=== PATIENT | male | born 1950 | race Caucasian/White ===

== ENCOUNTER 2019-09-30 15:23 | Emergency (ER) | payer MEDICARE ==
--- NOTE | 2019-09-30 15:53 | RAD ---
EXAM: CHEST ONE VIEW: 09/30/19 HISTORY: Shortness of breath for one month, worse laying down flat. COMPARISON: 08/28/16. FINDINGS: Interval development of right paratracheal adenopathy, left AP window adenopathy, and subcarinal antwan opathy as well as left hilar adenopathy/left perihilar lung mass measuring 5.3 cm in size. Blunting o f the left costophrenic angle suggesting some pleural effusion. 1.8 cm diameter nodule in the left lo wer lobe region. IMPRESSION: Fairly extensive mediastinal and hilar adenopathy as above. 5.3 cm diameter either a left hilar mass or pulmonary parenchymal mass. 1.8 cm diameter left lower lobe lateral pulmonary nodule. Left costoph renic angle blunting, evidence for some effusion. Code LN Follow-up CT scan on a nonemergent basis would be of benefit. POS: [facility]
[2019-09-30 16:33] LABS: #Basophils 0.1 thou/uL (0.0-0.2); #Eosinphils 0.2 thou/uL (0.0-0.7); #Neutrophils 5.8 thou/uL (1.40-6.50); %Eosinophils 1.7 % (0.0-10.0); %Lymphocytes 21.9 % (21.0-51.0); %Monocytes 10.8 % (0.0-10.0); %Neutrophils 64.7 % (42.0-75.0); Hemoglobin 14.5 g/dL (14.0-18.0); Mean Corpuscular HGB CONC 33.8 g/dL (32.0-36.0); Mean Corpuscular Hemoglobin 31.6 pg (27.0-31.0); Mean Corpuscular Volume 93.3 fL (78.0-98.0); Mean Platelet Volume 6.5 fL (7.4-10.4); Platelet Count 396 thou/uL (130-400)
[2019-09-30 16:54] LABS: ALT (SGPT) 14 U/L (8-55); AST (SGOT) 15 U/L (5-34); Albumin 4.7 g/dL (3.4-4.8); Alkaline Phosphatase 64 U/L (40-110); Anion Gap 14 mmol/L (10-20); BUN (Urea Nitrogen) 14 mg/dL (8.4-25.7); Bilirubin, Total 0.3 mg/dL (0.2-1.2); Calc. Creatinine Clearance 0 mL/min (70-130); Calcium 9.8 mg/dL (7.8-10.44); Carbon Dioxide 24 mmol/L (23-31); Chloride 100 mmol/L (98-107); Estimated GFR-MDRD 69; Globulin 2.5 g/dL (2.4-3.5); Glucose 101 mg/dL (80-115); Protein, Total 7.2 g/dL (5.8-8.1); Sodium 134 mmol/L (136-145)
--- NOTE | 2019-09-30 17:35 | CT ---
CT CHEST WITH CONTRAST: 09/30/19 COMPARISON: Chest x-ray 09/30/19. HISTORY: New mass on chest x-ray. Cough and shortness of breath has gotten worse on the last month when lying down flat at night. TECHNIQUE: Multiple contiguous axial images were obtained in a CT of the chest with contrast. Sagittal and coron al reformats were performed. FINDINGS: There is a left hilar mass measuring 4.1 cm in size. Extensive mediastinal lymphadenopathy is seen. The lymph nodes are confluent and measure up to 8.4 cm in confluent diameter. There appears to be sli ght narrowing of the bronchi to the left lung. There is also narrowing of the right and left main pul monary arteries secondary to the adenopathy. There is atelectasis in the lingula. A small left pleur al effusion is present. No other pulmonary masses are seen. No pneumothorax is seen. The visualized subdiaphragmatic structures are unremarkable. The chest wall soft tissues are unremark able. No suspicious osseous lesions are identified. IMPRESSION: Left hilar mass with extensive mediastinal adenopathy. A primary lung malignancy is of utmost concern . This mass and lymphadenopathy is central an bronchoscopy would be the best method for tissue sampli ng. POS: [facility]
--- NOTE | 2019-10-01 15:19 | EKG ---
Test Reason : Blood Pressure : / mmHG Vent. Rate : 097 BPM Atrial Rate : 097 BPM P-R Int : 156 ms QRS Dur : 144 ms QT Int : 384 ms P-R-T Axes : 071 030 017 degrees QTc Int : 487 ms Normal sinus rhythm Possible Left atrial enlargement Right bundle branch block Abnormal ECG Confirmed by MOY SCHAFFER ([id number]), editorial assistant JO SAAVEDRA ([id number]) on 10/01/2019 3:18:58 PM Referred By: Confirmed By:MOY Caldwell
== END 2019-09-30 19:36 | disposition home or self-care (01) ==
LOC: ERS 15:23
DX: R91.8 Other nonspecific abnormal finding of lung field (principal); E78.5 Hyperlipidemia, unspecified; E78.00 Pure hypercholesterolemia, unspecified; I10 Essential (primary) hypertension; F17.210 Nicotine dependence, cigarettes, uncomplicated; Z79.899 Other long term (current) drug therapy
CPT/HCPCS: 71045; 71260; 80053; 83880; 84484; 85025; 93005

== ENCOUNTER 2019-10-05 06:58 | Day surgery (SDC) | payer MEDICARE ==
[2019-10-04 09:18] VITALS: BMI 25.0
[2019-10-05] MEDS ORDERED: Midazolam HCl 2 mg/2 ml Vial ONE ×2 (08:15→08:38)
[2019-10-05] MEDS ORDERED: Fentanyl 100 MCG/2 ML VIAL ONE ×2 (08:38→09:51)
[2019-10-05] MEDS ORDERED: Succinylcholine Chloride 20 MG/ML 10 ml SYRINGE FS ONE (09:54)
[2019-10-05] MEDS ORDERED: Lidocaine 1% PF 5 ML VIAL ONE (09:54)
[2019-10-05] MEDS ORDERED: PHENYLEPHRINE-NS 100 MCG/ML 10 ML SYRINGE ONE (09:54)
[2019-10-05] MEDS ORDERED: Ondansetron PF 4 MG/2 ML Vial ONE (09:54)
[2019-10-05] MEDS ORDERED: PROPOFOL 200 MG/20 ML VIAL ONE (09:54)
[2019-10-05] MEDS ORDERED: Dexamethasone 20 MG/5 ML VIAL ONE (09:54)
--- NOTE | 2019-10-05 10:43 | OP ---
DATE OF PROCEDURE: 10/05/2019 PROCEDURE PERFORMED: Bronchoscopy. PREOPERATIVE DIAGNOSIS: Lung mass. POSTOPERATIVE DIAGNOSIS: Lung mass. ANESTHESIA: General endotracheal. DESCRIPTION OF PROCEDURE: Informed consent was obtained prior to the procedure, explaining the risks including bleeding, infection, pneumothorax, and reaction to anesthesia. The patient agreed to proceed. The patient was brought to the endoscopy suite and intubated with an 8.0 endotracheal tube by Anesthesia staff while on general anesthesia. Time-out was taken prior to procedure. Olympus 2.4 bronchoscope was placed through an adapter into the patient's endotracheal tube into his trachea. The trachea was normal in appearance throughout mainstem bronchus. Right upper lobe, right middle lobe, and right lower lobe were normal in appearance. On the ventral aspect of the left mainstem bronchus, there was endobronchial tumor occluding about 20% of the airway from that side. At the junction of the apical posterior segment and the lingula in the left upper lobe, it was noted that the lingula was 100% occluded by endobronchial tumor. There was also occlusion at lateral aspect of the apical posterior segment about 70% by tumor. The left lower lobe was free of disease. Biopsies were taken of the mass in the left lingula and left mainstem bronchus. Brushes were taken from these regions. Washings were also obtained. The patient tolerated the procedure well, was extubated, sent to recovery area. Job ID: [id number]
--- NOTE | 2019-10-06 12:46 | EKG ---
Test Reason : PREOP Blood Pressure : / mmHG Vent. Rate : 103 BPM Atrial Rate : 103 BPM P-R Int : 150 ms QRS Dur : 148 ms QT Int : 386 ms P-R-T Axes : 072 265 033 degrees QTc Int : 505 ms Sinus tachycardia Possible Left atrial enlargement Right bundle branch block Cannot rule out Inferior infarct , age undetermined Abnormal ECG When compared with ECG of 30-SEP-2019 15:33, QRS axis Shifted left Confirmed by DR. Felicita GIORDANO ([id number]) on 10/06/2019 12:46:03 PM Referred By: [facility] Confirmed By:DR. Felicita GIORDANO
== END 2019-10-05 11:10 | disposition home or self-care (01) ==
LOC: SDC 06:58
PROVIDERS: ATTEND Internal Medicine Critical Care Medicine
PROC: 0BD78ZX Extraction of Left Main Bronchus, Via Natural or Artificial Opening Endoscopic, Diagnostic (ICD-10-PCS; principal; 2019-10-05)
PROC: 0BDG8ZX Extraction of Left Upper Lung Lobe, Via Natural or Artificial Opening Endoscopic, Diagnostic (ICD-10-PCS; 2019-10-05)
DX: C34.12 Malignant neoplasm of upper lobe, left bronchus or lung (principal); C34.02 Malignant neoplasm of left main bronchus; I10 Essential (primary) hypertension; E78.5 Hyperlipidemia, unspecified; Z87.891 Personal history of nicotine dependence; Z79.899 Other long term (current) drug therapy
CPT/HCPCS: 88112; 88305; 88341; 88342; 88360; 93005; 93010; J1100; J2001; J2250; J2405; J2704; J3010

== ENCOUNTER 2019-10-14 07:27 | Outpatient (CLI) | payer MEDICARE ==
--- NOTE | 2019-10-14 11:43 | CT ---
CT BRAIN WITHOUT CONTRAST: Date: 10/14/2019 HISTORY: Lung cancer. Exam requested to evaluate for metastatic disease. COMPARISON: 10/25/2004. FINDINGS: No evidence of infarct, hemorrhage, mass, midline shift, or abnormal extra-axial fluid collections ar e seen. The ventricular size is appropriate and the basilar cisterns are patent. No abnormal postcont rast enhancement is seen. The bony calvarium is intact. The visualized paranasal sinuses and mastoid air cells are well aerated. IMPRESSION: No evidence of metastatic disease. Normal exam. POS: [facility]
--- NOTE | 2019-10-14 13:08 | PET ---
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 Initial staging. FINDINGS: Physiologic uptake of radiotracer throughout the enteric system and along each urinary trac t. Markedly increased uptake involves the left hilar mass/adenopathy, max SUV 5.6. Hypermetabolic activity is also associated with the bulky adenopathy throughout the mediastinum, with maximum SUVs up to 6.1 at the right hilum, 6.3 precarinal, and 6.3 subcarinal. Asymmetric uptake is noted at the larynx without mass evident on the CT images. Uptake is greater on the right than the left, max SUV 4.9. Left vocal cord is displaced medially slightly. Findings likely result from paralysis of the left vocal cord due to from damage to be recurrent laryngeal nerv e. No other areas of abnormal radiotracer uptake evident. Left pleural fluid has increased, as has prominent ill-defined infiltrate within the dependent portio ns of the left upper and lower lobes. Small amount of pericardial fluid is again demonstrated. Prominent calcification throughout the arterial structures including the coronary arteries. Small hia amrita hernia. IMPRESSION : Pathologic activity limited to the left hilar mass and bilateral mediastinal adenopathy. 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 Prominent atherosclerosis. Enlarging left pleural effusion and dependent infiltrate in the left upper and lower lobes. Possibly due to aspiration. Small hiatal hernia.
== END 2019-10-14 07:28 | disposition home or self-care (01) ==
LOC: PET 07:27 → CT 07:28
PROVIDERS: ATTEND Internal Medicine Hematology & Oncology
DX: C34.12 Malignant neoplasm of upper lobe, left bronchus or lung (principal); K44.9 Diaphragmatic hernia without obstruction or gangrene; R91.8 Other nonspecific abnormal finding of lung field; J38.01 Paralysis of vocal cords and larynx, unilateral; I25.10 Atherosclerotic heart disease of native coronary artery without angina pectoris; R94.8 Abnormal results of function studies of other organs and systems
CPT/HCPCS: 70470; 78815; A9552

== ENCOUNTER 2019-12-02 11:05 | Observation (INO) | payer MEDICARE ==
[2019-12-02 11:44] LABS: #Lymphocytes 0.6 thou/uL (1.20-3.40); #Monocytes 0.1 thou/uL (0.11-0.59); #Neutrophils 0.8 thou/uL (1.40-6.50); %Basophils 0.5 % (0.0-1.0); %Eosinophils 0.5 % (0.0-10.0); %Lymphocytes 41.4 % (21.0-51.0); %Monocytes 3.5 % (0.0-10.0); Hemoglobin 6.7 g/dL (14.0-18.0); Mean Corpuscular HGB CONC 34.6 g/dL (32.0-36.0); Mean Corpuscular Hemoglobin 32.2 pg (27.0-31.0); Mean Corpuscular Volume 92.9 fL (78.0-98.0); Mean Platelet Volume 6.3 fL (7.4-10.4); Platelet Count 180 thou/uL (130-400); Red Blood Cell (RBC) Count 2.08 mill/uL (4.70-6.10); White Blood Cell (WBC) Count 1.6 thou/uL (4.8-10.8)
--- NOTE | 2019-12-02 11:47 | RAD ---
EXAM: Single view of the chest HISTORY: Anemia COMPARISON: 09/30/2019 FINDINGS: Single view of the chest shows a normal sized cardiomediastinal silhouette. There is a smal l left pleural effusion with adjacent atelectasis. The bones are unremarkable. IMPRESSION: Small left pleural effusion
[2019-12-02 11:50] LABS: INR-International Normal Ratio 1.1; PTT 29.6 sec (22.9-36.1)
--- NOTE | 2019-12-02 11:52 | CT ---
EXAM: CT brain without contrast HISTORY: Syncope COMPARISON: 10/25/2004 TECHNIQUE: Multiple contiguous axial images were obtained and a CT of the brain without contrast. FINDINGS: The brain is normal in morphology and attenuation without focal lesions or confluent areas of infarction. There is no evidence of hydrocephalus, intracranial hemorrhage, or extra-axial fluid collection. The calvarium and overlying soft tissues are unremarkable. The visualized paranasal sinuses and masto id air cells are well aerated. IMPRESSION: No evidence of acute intracranial abnormality
--- NOTE | 2019-12-02 11:54 | CT ---
EXAM: CT of the cervical spine without contrast HISTORY: Syncope with fall and neck pain COMPARISON: None TECHNIQUE: Multiple contiguous axial images were obtained in a CT of the cervical spine without contr ast. Sagittal and coronal reformats were performed. FINDINGS: The vertebral bodies demonstrate normal height and alignment without fracture or subluxatio n. Moderate degenerative changes are present in the mid cervical spine. No prevertebral soft tissue swelling is seen. The posterior facets are well aligned. Normal alignment of the skull base with the cervical spine is seen. The lung apices and cervical soft tissues are unremarkable. IMPRESSION: No evidence of acute osseous abnormality of the cervical spine.
--- NOTE | 2019-12-02 12:07 | CT ---
CT ANGIOGRAM THORAX WITH CONTRAST: (CTA pulmonary angiogram) DATE: 12/02/2019 HISTORY: 69-year-old male with dyspnea. History of left lung small cell cancer. COMPARISON: Noncontrast CT of 09/30/2019 TECHNIQUE: IV injection of iodinated contrast. Scan acquisition timing attempted to coincide with iodinated contrast bolus reaching maximal density in pulmonary arteries. 3-D MIP reconstructions. FINDINGS: There has been dramatic interval decrease in size of the large confluent tumor mass involving all spa colleen of the mediastinum, left hilum, and left perihilar lung.. The previously demonstrated small left pleural effusion has increased in volume, and currently occupi es approximately 30-40% of left hemithoracic volume. New associated passive atelectasis at left lower lobe. Small pericardial effusion. No right-sided pleural effusion. No thoracic aortic aneurysm, dissection, or rupture. Small sliding hiatal hernia. Difficult to evaluate branches of left lower lobe pulmonary artery because of surrounding atelectatic lung. Otherwise, no pulmonary thromboembolism identified in rest of the vessels. Right lung is relatively clear. No pneumothorax. Trachea and bilateral mainstem bronchi are patent and clear. IMPRESSION: 1) no pulmonary thromboembolism identified. 2) interval increase in volume of now moderate sized left pleural effusion with adjacent passive atel ectasis in left lower lobe. 3) small pericardial effusion 4) small sliding hiatal hernia
[2019-12-02] MEDS ORDERED: Adacel (T-DAP) 0.5 ML SYRINGE ONE (12:13)
[2019-12-02 12:21] LABS: ALT (SGPT) 8 U/L (8-55); AST (SGOT) 7 U/L (5-34); Albumin 3.9 g/dL (3.4-4.8); Alkaline Phosphatase 52 U/L (40-110); Anion Gap 14 mmol/L (10-20); BUN (Urea Nitrogen) 23 mg/dL (8.4-25.7); Bilirubin, Total 0.3 mg/dL (0.2-1.2); Calc. Creatinine Clearance 0 mL/min (70-130); Calcium 9.4 mg/dL (7.8-10.44); Carbon Dioxide 23 mmol/L (23-31); Chloride 105 mmol/L (98-107); Estimated GFR-MDRD 77; Globulin 3.2 g/dL (2.4-3.5); Glucose 101 mg/dL (80-115); Potassium 4.3 mmol/L (3.5-5.1); Protein, Total 7.1 g/dL (5.8-8.1); Sodium 138 mmol/L (136-145)
[2019-12-02] MEDS ORDERED: Nitroglycerin 0.4 MG TAB (25 Tab Bottle) PO PRN (13:08)
[2019-12-02] MEDS ORDERED: Calcium Carbonate 500 MG ChewTAB PO PRN (13:12)
[2019-12-02] MEDS ORDERED: Ondansetron PF 4 MG/2 ML Vial IVP PRN (13:12)
[2019-12-02] MEDS ORDERED: Acetaminophen 325 MG TAB PO PRN (13:12)
[2019-12-02] MEDS ORDERED: Ondansetron ODT 4 MG TAB PO PRN (13:12)
[2019-12-02] MEDS ORDERED: Bisacodyl 10 MG SUPP PR PRN (13:12)
[2019-12-02] MEDS ORDERED: Sodium Chloride 0.9% 1,000 ML IV SCH (13:15)
[2019-12-02] MEDS ORDERED: Iopamidol-370 76% 500 ML 1 ML ONE (14:24)
[2019-12-02 14:51] LABS: Reticulocyte Count 0.1 % (0.5-1.5)
[2019-12-02 15:05] LABS: Phosphorus 3.7 mg/dL (2.3-4.7)
[2019-12-02 15:07] LABS: Magnesium 1.9 mg/dL (1.6-2.6)
[2019-12-02 15:20] LABS: Polychromasia SLIGHT = 2-3 cells (100X) (0-2/hpf)
[2019-12-02 15:20] LABS: Troponin I Less than 0.010 ng/mL (< 0.028)
[2019-12-02 15:23] LABS: Platelet Morphology Comment Appears Adequate; Schistocytes SLIGHT = 2-5 cells (100X) (0-1/hpf)
[2019-12-02 16:58] LABS: Ferritin 3169.08 ng/mL (22-322)
--- NOTE | 2019-12-02 17:31 | ULT ---
ULTRASOUND-GUIDED THORACENTESIS LEFT DIAGNOSTIC AND THERAPEUTIC: DATE: 12/02/2019 HISTORY: 69-year-old male with left small cell lung cancer presents with left pleural effusion and dyspnea TECHNIQUE: Signed informed consent obtained. Ultrasound evaluation of left pleural effusion performed. Site selected for puncture: right lower quadrant Overlying skin prepared and draped in usual sterile fashion. 25-gauge needle used to apply buffered lidocaine superficially and deeply. 5 Indian Yueh catheter with stylette advanced into the pocket of free intrapleural fluid. Catheter connected to evacuated bottles via plastic tubing. After drainage, the Yueh catheter was removed. The bilateral of pleural fluid was sent to laboratory for analysis. Patient tolerated the procedure well. No complications. FINDINGS: Volume of pleural effusion prior to procedure:moderate. Volume of pleural effusion in the drainage pocket after drainage:small. Volume of ascites fluid drained:550 mL Appearance of pleural fluid:nonhemorrhagic, straw-colored. IMPRESSION: Successful diagnostic and therapeutic left thoracentesis, with drainage of 0.55 L of pleural fluid.
--- NOTE | 2019-12-02 17:56 | RAD ---
RADIOGRAPH CHEST 2 VIEW: DATE: 12/02/2019 TIME: 5:38 PM HISTORY: 69-year-old male with left-sided small cell lung cancer. Immediately status post left pleurocentesis for left pleural effusion. Rule out pneumothorax. COMPARISON: none FINDINGS: 2 upright AP images in inspiration and expiration. There is no pneumothorax. There is a small left residual pneumothorax. Patchy infiltrate or atelectasis at left lower lung zone. Left upper lung zone and all of right visualized lung johnston, are clear. No cardiomegaly. IMPRESSION: 1. No pneumothorax. 2. Small left residual pleural effusion and adjacent left lower lobe patchy pulmonary opacities.
[2019-12-02 19:05] LABS: Troponin I Less than 0.010 ng/mL (< 0.028)
[2019-12-02 19:10] LABS: RBC Count-Automated (BF) 1593 /cu.mm; WBC/Nucleated-Auto (BF) 988 uL
[2019-12-02 19:22] LABS: Pleural Fluid, Protein 3.9 g/dL
[2019-12-02 19:28] LABS: BF Color Yellow; Body Fluid Source Pleural Fluid; Clarity Hazy (Clear); Tube # EDTA
[2019-12-02 19:31] LABS: BF Segmented Neutrophils 4 %; Cell Count Non Hematic 8 %; Eosinophils 3 %; Lymphocytes 82 %
[2019-12-02 19:43] VITALS: BMI 23.4
[2019-12-02] MEDS ORDERED: Milk Of Magnesia 30 ML UDCUP PO PRN (20:14)
[2019-12-02] MEDS ORDERED: Polyethylene Glycol 3350 17 GM Packet PO PRN (20:14)
[2019-12-02] MEDS ORDERED: Atorvastatin Calcium 10 MG TAB PO SCH (21:00)
[2019-12-02] MEDS: Docusate 100 MG CAP PO SCH (21:20)
--- NOTE | 2019-12-02 21:24 | HP ---
PRIMARY CARE PHYSICIAN: BETTY Meier. PRIMARY ONCOLOGIST: Dr. Porter. CHIEF COMPLAINT: Abnormal labs with near syncope. HISTORY OF PRESENT ILLNESS: The patient is a 69-year-old male with small cell lung cancer, currently undergoing carboplatin and etoposide chemotherapy along with radiation, presented to the emergency room with above complaints. Over the last 1 week, the patient developed gradual worsening shortness of breath to the extent that the patient developed shortness of breath on mild exertion. He had intermittent dizziness, especially on ambulation. No chest pain, orthopnea, paroxysmal nocturnal dyspnea, or loss of consciousness reported. No fever, chills, sick contacts or travel reported. He is compliant with all of his medications. He was found to have low hemoglobin for which he was sent to the emergency room for evaluation. He was scheduled for radiation therapy today. Earlier this morning, he accidentally hit his head on the fifth wheel of his trailer and has a scalp laceration. He denies any headache or loss of consciousness. PHYSICAL EXAMINATION: VITAL SIGNS: In the emergency room, his initial vital signs showed temperature 97.8 with respirations 21, pulse of 98 with a blood pressure of 118/68 with O2 saturation 97% on room air. His the hemoglobin was 6.7 with WBC count of 1.6. He was also found to have less left-sided pleural effusion, moderate size. PAST MEDICAL HISTORY: 1. Small cell lung cancer with a large left hilar mass and pleural effusion. 2. Weight loss. 3. Extensive history of tobacco abuse. 4. Hypertension. 5. Hyperlipidemia. 6. GERD. 7. Anxiety. PAST SURGICAL HISTORY: 1. Right hand surgery. 2. Thoracentesis. 3. Bronchoscopy. ALLERGIES: NO KNOWN DRUG ALLERGIES. CURRENT HOME MEDICATIONS: 1. Bupropion 150 mg daily. 2. Simvastatin 20 mg daily. SOCIAL HISTORY: The patient is , has 2 children. He is a former smoker with 80 pack year smoking history. He makes his own decision with the help of his family. He is full code. FAMILY HISTORY: Negative for premature coronary artery disease. Daughter has aortic dissection. REVIEW OF SYSTEMS: All other review of systems were reviewed and were found negative. GENERAL: A 69-year-old male in no apparent distress. HEENT: Head, atraumatic and normocephalic. Sclerae anicteric. Moist mucous membrane. Conjunctival pallor noted. NECK: Supple. No JVD. No carotid bruit. LUNGS: Showed diminished air entry at left base with scattered rhonchi. There was no accessory muscle use or wheezing. HEART: S1, S2 present. Regular rate and rhythm. No rubs or gallops. ABDOMEN: Soft, nontender. Bowel sounds present. No rebound or guarding. EXTREMITIES: No edema or calf tenderness. NEUROLOGY: Grossly nonfocal. Moves all 4 extremities. PSYCHIATRY: Alert, awake oriented x3. SKIN: Warm and dry. LYMPH NODES: No palpable lymph nodes in the neck. PULSES: Peripheral, vascular, radial pulses palpable bilaterally. MUSCULOSKELETAL: No joint swelling tenderness. LABORATORY FINDINGS: Hemoglobin 6.7 with WBC of 1.6, reticulocyte 0.1. Troponin was negative. BNP was 22. IMAGIN. CT angiogram of the chest by my review was negative for pulmonary embolism. It showed interval decrease in the volume of mediastinal and left hilar malignant tumor mass with moderate left-sided pleural effusion. 2. Chest x-ray by my review showed similar finding. 3. CT scan of the brain was negative. 4. EKG by my review showed sinus rhythm with nonspecific ST-T wave changes. IMPRESSION: 1. Near syncope, probably secondary to symptomatic anemia. 2. Dyspnea on exertion secondary to anemia with left-sided moderate pleural effusion. 3. Hypertension. 4. Gastroesophageal reflux disease. 5. Small cell lung cancer on chemotherapy and radiation. 6. Eighty pack-year smoking history. 7. Chronic kidney disease, stage 2. 8. Dyslipidemia. 9. Gastroesophageal reflux disease. 10. Anxiety. 11. Small pericardial effusion. 12. Small hiatal hernia. PLAN: The patient will be monitored on the telemetry unit. Ultrasound-guided thoracentesis will be obtained. Fluid will be sent for cytology. We will also rule out infection. Echocardiogram will be obtained. We will transfuse 1 unit of PRBC. We will recheck H and H in a.m. We will keep the patient on isolation due to neutropenia. Resume selected home medications. I discussed the plan of care with the patient as well as with Dr. Porter. DISPOSITION: Probably in 24 hours, if patient is stable. Job ID: [id number]
[2019-12-02] MEDS ORDERED: traZODone HCl 50 MG TAB PO SCH (23:15)
[2019-12-03 04:36] LABS: Eosinophils 2 % (0-10); Hemoglobin 7.5 g/dL (14.0-18.0); Lymphocytes 64 % (21-51); MDiff Complete? YES; Mean Corpuscular HGB CONC 33.6 g/dL (32.0-36.0); Mean Corpuscular Volume 92.3 fL (78.0-98.0); Mean Platelet Volume 6.4 fL (7.4-10.4); Monocytes 2 % (0-10); Neutrophil 32 % (42-75); Platelet Count 117 thou/uL (130-400); Platelet Morphology Comment Appears Decreased; RBC Distribution Width 11.9 % (11.5-14.5); Red Blood Cell (RBC) Count 2.42 mill/uL (4.70-6.10); White Blood Cell (WBC) Count 1.3 thou/uL (4.8-10.8)
[2019-12-03] MEDS: Docusate 100 MG CAP PO SCH (08:16)
[2019-12-03] MEDS ORDERED: Bupropion 150 MG SR TAB PO SCH (09:00)
[2019-12-03 12:25] VITALS: BP 122/64; TEMP 98.2
--- NOTE | 2019-12-03 13:50 | DIS ---
DATE OF ADMISSION: 12/02/2019 DATE OF DISCHARGE: 12/03/2019 DISCHARGE DISPOSITION: Home. FOLLOWUP: 1. Follow up with Gala Doss in 1 week. 2. Follow up with Oncology, Dr. Mei Porter in 1 week. 3. The patient was advised to follow up on the cytology report. 4. An outpatient followup with Dr. Hinds is recommended. 5. An echocardiogram is pending at the time of discharge. Primary care physician advised to follow. MEDICATIONS: Discharge medications same as admission medication. The patient was seen and examined on the day of discharge. Denies any new complaints. No chest pain, shortness of breath, or palpitations reported. SIGNIFICANT LABORATORY DATA: WBC 1.6. Hemoglobin on admission 6.7, at discharge 7.5. Please note, the patient received another unit of PRBC prior to discharge. Reticulocyte count was 0.1. PT, INR, and PTT normal range. Ferritin 3169. Vitamin B12 of 1804. BNP was normal. Troponin was normal. Folic acid 9.7. TIBC was 243, iron was 113. Pleural fluid Gram stain was negative. There were no growth at 12 hours. BRIEF HOSPITAL COURSE: The patient is a 69-year-old male with small cell lung cancer, currently undergoing carboplatin and etoposide chemotherapy along with radiation, presented to the emergency room from the [facility] with abnormal labs and near syncope. The patient was getting short of breath on mild exertion over the last 1 week. He had 1 episode of lightheadedness on ambulation. Please refer to the history and physical for further details. The patient was admitted to the hospital with a diagnosis of near syncope, probably secondary to symptomatic anemia. He received 2 units of PRBC this admission. His hemoglobin after first unit was 7.5. Shortness of breath has significantly improved. His CT angiogram of the chest was consistent with left-sided moderate pleural effusion. He underwent ultrasound-guided thoracentesis. Pleural fluid has been sent for cytology. Cultures have been negative so far. Due to lightheadedness, an echocardiogram was done as well. He was advised to follow up on the echocardiogram report. The patient has an appointment for radiation today. He appears stable for discharge. FINAL DIAGNOSES: 1. Near syncope with exertional shortness of breath on admission. 2. Symptomatic anemia. 3. Left-sided moderate pleural effusion. 4. Hypertension. 5. Gastroesophageal reflux disease. 6. Small cell lung cancer on chemotherapy and radiation. 7. Eighty pack-year smoking history. 8. Chronic kidney disease stage 2. 9. Dyslipidemia. 10. Small pericardial effusion. 11. Small hiatal hernia. 12. Anxiety. PHYSICAL EXAMINATION: VITAL SIGNS: At discharge, his temperature 98.2 with pulse rate of 94, respirations of 18 with blood pressure of 122/64, O2 saturation 98% on room air. The patient was seen and examined on the day of discharge. The patient understands the above plan of care. Job ID: [id number]
== END 2019-12-03 13:00 | disposition home or self-care (01) ==
LOC: ERS 11:05 → 2NO 13:15
PROVIDERS: ADMIT Internal Medicine; ATTEND Internal Medicine
PROC: 0BJQ3ZZ Inspection of Pleura, Percutaneous Approach (ICD-10-PCS; principal; 2019-12-02)
PROC: BB4BZZZ Ultrasonography of Pleura (ICD-10-PCS; 2019-12-02)
DX: D64.9 Anemia, unspecified (principal); R55 Syncope and collapse; R06.02 Shortness of breath; C34.92 Malignant neoplasm of unspecified part of left bronchus or lung; J90 Pleural effusion, not elsewhere classified; I31.3 Pericardial effusion (noninflammatory); I12.9 Hypertensive chronic kidney disease with stage 1 through stage 4 chronic kidney disease, or unspecified chronic kidney disease; N18.2 Chronic kidney disease, stage 2 (mild); E78.5 Hyperlipidemia, unspecified; F41.9 Anxiety disorder, unspecified; K21.9 Gastro-esophageal reflux disease without esophagitis; K44.9 Diaphragmatic hernia without obstruction or gangrene; Z79.899 Other long term (current) drug therapy; Z87.891 Personal history of nicotine dependence
CPT/HCPCS: 32555; 36430 ×2; 70450; 71045; 71046; 71275; 72125; 76942; 80048; 80053; 82150; 82607; 82728; 82746; 82945; 83540; 83550; 83615; 83735; 83880; 84100; 84157; 84484 ×2; 85007; 85025; 85027; 85046; 85610; 85730; 86850; 86900; 86901; 86920; 87070; 87205; 88112; 88305; 88341; 88342; 89051; 90471; 90715; 93005; 93306; 94760 ×2; 99285; G0378 ×2; P9016 ×2; 36415; 85060; Q9967

== ENCOUNTER 2020-01-12 11:43 | Outpatient (CLI) | payer MEDICARE ==
--- NOTE | 2020-01-12 12:19 | RAD ---
EXAM: Chest 2 views: HISTORY: Malignant neoplasm of the upper lobe of the lungs COMPARISON: CT of the chest 12/02/2019 FINDINGS: There is a normal-sized cardiomediastinal silhouette. There is a small left pleural effusion with ad jacent atelectasis. No right-sided infiltrates are seen. The bones are unremarkable. IMPRESSION: Small left pleural effusion with adjacent atelectasis
== END 2020-01-12 11:44 | disposition home or self-care (01) ==
LOC: BICRAD 11:43
PROVIDERS: ATTEND Internal Medicine Hematology & Oncology
DX: C34.12 Malignant neoplasm of upper lobe, left bronchus or lung (principal); R06.02 Shortness of breath; J98.11 Atelectasis; J90 Pleural effusion, not elsewhere classified
CPT/HCPCS: 71046; 80053; 82248; 83615; 84100; 84550

== ENCOUNTER 2020-05-23 09:54 | Emergency (ER) | payer MEDICARE ==
[~2020-05-23 09:54] MED LIST: Iopamidol-370 76% 500 ML 1 ML ONE
[2020-05-23 10:25] LABS: #Eosinphils 0.1 thou/uL (0.0-0.7); #Lymphocytes 0.9 thou/uL (1.20-3.40); #Monocytes 0.8 thou/uL (0.11-0.59); #Neutrophils 3.4 thou/uL (1.40-6.50); %Basophils 0.6 % (0.0-1.0); %Eosinophils 2.3 % (0.0-10.0); %Lymphocytes 17.2 % (21.0-51.0); %Monocytes 14.4 % (0.0-10.0); %Neutrophils 65.4 % (42.0-75.0); Mean Corpuscular HGB CONC 33.3 g/dL (32.0-36.0); Mean Corpuscular Hemoglobin 30.6 pg (27.0-31.0); Mean Corpuscular Volume 91.6 fL (78.0-98.0); Mean Platelet Volume 6.8 fL (7.4-10.4); Platelet Count 263 thou/uL (130-400); RBC Distribution Width 14.9 % (11.5-14.5); Red Blood Cell (RBC) Count 4.57 mill/uL (4.70-6.10); White Blood Cell (WBC) Count 5.2 thou/uL (4.8-10.8)
[2020-05-23 10:48] LABS: ALT (SGPT) 10 U/L (8-55); AST (SGOT) 12 U/L (5-34); Albumin 4.4 g/dL (3.4-4.8); Alkaline Phosphatase 82 U/L (40-110); Anion Gap 14 mmol/L (10-20); BUN (Urea Nitrogen) 18 mg/dL (8.4-25.7); Bilirubin, Total 0.4 mg/dL (0.2-1.2); Calc. Creatinine Clearance 0 mL/min (70-130); Calcium 9.4 mg/dL (7.8-10.44); Carbon Dioxide 27 mmol/L (23-31); Chloride 101 mmol/L (98-107); Globulin 2.9 g/dL (2.4-3.5); Glucose 108 mg/dL (83-110); Lipase 25 U/L (8-78); Potassium 4.3 mmol/L (3.5-5.1); Protein, Total 7.3 g/dL (5.8-8.1); Sodium 138 mmol/L (136-145)
--- NOTE | 2020-05-23 11:43 | CT ---
CTA Angio Chest W WO Con 05/23/2020 11:22 AM Indication: Lower chest pain with history of lung cancer with mild tachycardia Technique: Multiple CTA images were obtained of the thorax with IV contrast. 3-D rendering: MIP cintia nstructed images were created and reviewed. Comparison: Prior CT PE dated December 02, 2019 Findings: Pulmonary arteries: No central or segmental pulmonary embolus is evident. Heart and Aorta: There are vascular calcifications involving coronary arteries and thoracic aorta. N o acute dissection or aneurysm is evident. There is a slightly more pronounced moderate pericardial effusion Mediastinum:There is persistent thickening (corresponding to the region of treated mediastinal mass) involving the soft tissues in the AP window, pretracheal, left peribronchial and left hilar region. There is worsening circumferential thickening of the mid and distal esophagus. There is a small hiata l hernia. Lungs:There is persistent left basilar subsegmental volume loss. Left-sided pleural effusion has decr eased in size. Radiation fibrotic change involving the upper lobes and superior lower lobes is stable. Scarring in the left lung apex is stable. Pleural space: Small left pleural effusion Upper Abdomen: No acute abnormality. Osseous Structures: No acute osseous abnormality. Soft tissues:No abnormality. Other findings:None. Impression: 1. No central or segmental pulmonary embolus. 2. Stable post therapy changes to the mediastinum and bilateral lungs. Residual soft tissue thickenin g in the mediastinum (corresponding to treated tumor) appears similar to the most recent CT the chest, abdomen and pelvis dated February 23, 2020 3. Enlarging moderate pericardial effusion. 4. Decrease in size of the small left pleural effusion with left basilar atelectasis. 5. Worsening circumferential thickening involving the mid to distal esophagus may reflect worsening e sophagitis possibly related to radiation therapy or reflux. Underlying malignancy is not excluded. Would recommend correlation with the patient's history for any recent endoscopy. If not recently eval uated, GI referral is recommended.
--- NOTE | 2020-05-23 11:44 | CT ---
CT abdomen and pelvis with IV contrast HISTORY: Upper abdomen pain. COMPARISON: 02/23/2020. FINDINGS: Pericardial fluid is partially visualized and has increased slightly. Small amount of left pleural fluid and basilar atelectasis is unchanged from the prior exam. Small hiatal hernia. Solid organs are intact. No free air or free fluid. Calcification throughout the arterial structures. Scattered diverticula arise from the colon without adjacent inflammation. No evidence of bowel obstruction or inflammation. Lobular lipoma within the second portion of the duo denum is 1.2 cm greatest diameter. IMPRESSION : No acute abnormalities are demonstrated to explain abdominal pain. Chronic-type findings are stable.
[2020-05-23] MEDS ORDERED: Pantoprazole 40 MG VIAL ONE (13:11)
[2020-05-23] MEDS ORDERED: Lidocaine Viscous Sol 2% 15 ml UD Cup ONE (13:11)
--- NOTE | 2020-05-27 14:42 | EKG ---
Test Reason : LUQ ABD PAIN Blood Pressure : / mmHG Vent. Rate : 103 BPM Atrial Rate : 103 BPM P-R Int : 152 ms QRS Dur : 132 ms QT Int : 374 ms P-R-T Axes : 077 053 045 degrees QTc Int : 489 ms Sinus tachycardia Possible Left atrial enlargement Right bundle branch block Septal infarct , age undetermined Abnormal ECG Confirmed by PAOLA TESFAYE ([id number]), photographic editor EDILMA ROBERT ([id number]) on 05/27/2020 2:41:54 PM Referred By: Confirmed By:PAOLA TESFAYE
== END 2020-05-23 13:27 | disposition home or self-care (01) ==
LOC: ERS 09:54
DX: K20.90 Esophagitis, unspecified without bleeding (principal); J90 Pleural effusion, not elsewhere classified; I31.3 Pericardial effusion (noninflammatory); I10 Essential (primary) hypertension; E78.00 Pure hypercholesterolemia, unspecified; Z87.891 Personal history of nicotine dependence; Z79.01 Long term (current) use of anticoagulants
CPT/HCPCS: 36415; 71275; 74177; 80053; 83690; 84484; 85025; 93005; 96374; C9113; Q9967

== ENCOUNTER 2020-05-24 10:30 | Outpatient (CLI) | payer MEDICARE ==
[~2020-05-24 10:30] MED LIST changes: -Iopamidol-370 76% 500 ML 1 ML ONE; +Magnevist 469MG/ML 20 ML VIAL ONE
--- NOTE | 2020-05-24 13:36 | MRI ---
BRAIN MRI WITH AND WITHOUT CONTRAST: 05/24/20 HISTORY: Small cell lung cancer. Evaluate for intracranial metastases. FINDINGS: No hemorrhage on the axial gradient echo sequence. Calvarium has an appropriate T1 marrow signal intensity. Midline brain parenchymal structures are unr emarkable. No parenchymal mass, mass effect or midline shift. Brain volume is age appropriate. Cortical nieves-whi te matter differentiation is preserved. No hydrocephalus. Central arterial flow voids are maintained. Absent restricted diffusion. No significant T2 or FLAIR w jamison matter hyperintensities. Adequate paranasal sinus and mastoid air cell aeration. No pathologic enhancement of the brain parenchyma. IMPRESSION: No evidence of intracranial metastases. POS: [facility]
== END 2020-05-24 10:31 | disposition home or self-care (01) ==
LOC: BICMRI 10:30
PROVIDERS: ATTEND Radiology Radiation Oncology
DX: C34.90 Malignant neoplasm of unspecified part of unspecified bronchus or lung (principal)
CPT/HCPCS: 70553; A9579

== ENCOUNTER 2020-06-29 08:57 | Outpatient (CLI) | payer MEDICARE ==
--- NOTE | 2020-06-29 09:49 | CT ---
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 No new suspicious pulmonary nodules evident. The fibrotic change seen along the margins of the mediastinum within both lungs likely related to radiation therapy is stable. Pleural space: There is a small left pleural effusion that is stable. Mediastinum: The soft tissue density within the central aspect of the mediastinum centered in the sub carinal region is largely stable consistent with changes of treated tumor. Moderate pericardial effusion is stable. The circumferential wall thickening involving the mid to distal esophagus appears slightly less prominent than on the most recent comparison dated May 23, 2020 and stable to the prior dated 02/23/2020. Small hiatal hernia persists Axilla: No pathologically enlarged lymph nodes. ABDOMEN: Liver: No focal lesion. Gallbladder: Normal appearing. Pancreas: Normal. Adrenal glands: Normal. Spleen: Normal. Kidneys and ureters: Normal. No hydronephrosis. Vasculature: There are moderate vascular calcifications seen involving the visualized vasculature. Lymph nodes:No lymphadenopathy. Free fluid in abdomen:No free fluid is evident. PELVIS: Small and large bowel: There is scattered colonic diverticula without evidence of active diverticulit is. Small bowel is of normal caliber. Stomach appears within normal limits. Appendix:Normal Bladder: Normal. Rectal and perirectal soft tissues:Normal. Reproductive structures: Normal. Free fluid in pelvis: No free fluid is evident. Lymphadenopathy pelvis: No lymphadenopathy is evident. Osseous structures: There are healing anterolateral right third through fifth rib fractures. No suspi cious osteolytic or osteoblastic lesion is identified. 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 There is scattered degenerative and osteoarth ritic changes. Soft tissues:Normal. IMPRESSION: 1. Findings consistent with response to therapy. There is residual mild soft tissue density without a ssociated mass effect within the central mediastinum in the subcarinal zone. This is consistent with treated tumor. Slightly smaller subpleural right lung apical groundglass pulmonary nodule. No ne w pulmonary nodules identified. 2. Stable moderate pericardial effusion and small left pleural effusion. 3. Improvement in the circumferential wall thickening involving the mid to distal esophagus is likely reflective of improving esophagitis. 4. No evidence of metastatic disease within the abdomen, pelvis and osseous structures. 5. Healing anterolateral right third through fifth rib fractures. Stable osteonecrosis of the left fe moral head.
== END 2020-06-29 08:58 | disposition home or self-care (01) ==
LOC: BICCT 08:57
PROVIDERS: ATTEND Internal Medicine Hematology & Oncology
DX: C34.12 Malignant neoplasm of upper lobe, left bronchus or lung (principal); R91.1 Solitary pulmonary nodule; I31.3 Pericardial effusion (noninflammatory); J90 Pleural effusion, not elsewhere classified; K22.8 Other specified diseases of esophagus; S22.41XD Multiple fractures of ribs, right side, subsequent encounter for fracture with routine healing
CPT/HCPCS: 71260; 74177; 82565

== ENCOUNTER 2020-08-24 10:17 | Outpatient (CLI) | payer MEDICARE ==
[2020-08-24] MEDS ORDERED: Magnevist 469MG/ML 20 ML VIAL ONE (14:57)
== END 2020-08-24 10:18 | disposition home or self-care (01) ==
LOC: MRI 10:17
PROVIDERS: ATTEND Radiology Radiation Oncology
DX: C34.90 Malignant neoplasm of unspecified part of unspecified bronchus or lung (principal)
CPT/HCPCS: 70553; 82565; A9579

== ENCOUNTER 2020-10-25 08:55 | Outpatient (CLI) | payer MEDICARE ==
[2020-10-25] MEDS ORDERED: Iopamidol-370 76% 500 ML 1 ML ONE (13:38)
== END 2020-10-25 08:56 | disposition home or self-care (01) ==
LOC: BICCT 08:55
PROVIDERS: ATTEND Internal Medicine Hematology & Oncology
DX: C34.12 Malignant neoplasm of upper lobe, left bronchus or lung (principal); M79.9 Soft tissue disorder, unspecified
CPT/HCPCS: 71260; 74177; 82565; Q9967

== ENCOUNTER 2021-02-20 11:41 | Outpatient (CLI) | payer MEDICARE | END 2021-02-20 11:42 | disposition home or self-care (01) | LOC: BICMRI 11:41 | PROVIDERS: ATTEND Radiology Radiation Oncology | DX: C34.82 Malignant neoplasm of overlapping sites of left bronchus and lung (principal) | CPT/HCPCS: 70553; A9579 ==

== ENCOUNTER 2021-04-20 09:34 | Outpatient (CLI) | payer MEDICARE | END 2021-04-20 09:35 | disposition home or self-care (01) | LOC: BICRAD 09:34 | PROVIDERS: ATTEND Nurse Practitioner Family | DX: C34.90 Malignant neoplasm of unspecified part of unspecified bronchus or lung (principal); I31.3 Pericardial effusion (noninflammatory) | CPT/HCPCS: 71046 ==

== ENCOUNTER 2021-04-26 09:05 | Outpatient (CLI) | payer MEDICARE | END 2021-04-26 09:06 | disposition home or self-care (01) | LOC: BICCT 09:05 | PROVIDERS: ATTEND Internal Medicine Hematology & Oncology | DX: C34.12 Malignant neoplasm of upper lobe, left bronchus or lung (principal); K22.89 Other specified disease of esophagus; I31.3 Pericardial effusion (noninflammatory) | CPT/HCPCS: 71260; 74177; 82565 ==

== ENCOUNTER 2021-05-23 10:35 | Outpatient (CLI) | payer MEDICARE ==
[2021-05-23] MEDS ORDERED: Magnevist 469MG/ML 20 ML VIAL ONE (11:40)
== END 2021-05-23 10:36 | disposition home or self-care (01) ==
LOC: MRI 10:35
PROVIDERS: ATTEND Radiology Radiation Oncology
DX: C34.82 Malignant neoplasm of overlapping sites of left bronchus and lung (principal)
CPT/HCPCS: 70553

== ENCOUNTER 2021-11-07 13:56 | Inpatient (IN) | payer MEDICARE ==
[2021-11-07] MEDS ORDERED: Iopamidol-370 76% 500 ML 1 ML ONE (14:38)
[2021-11-07 15:00] LABS: #Lymphocytes 0.8 thou/uL (1.20-3.40); #Monocytes 0.7 thou/uL (0.11-0.59); #Neutrophils 3.8 thou/uL (1.40-6.50); %Basophils 0.6 % (0.0-1.0); %Eosinophils 0.8 % (0.0-10.0); %Lymphocytes 14.1 % (21.0-51.0); %Monocytes 13.2 % (0.0-10.0); %Neutrophils 71.3 % (42.0-75.0); Hemoglobin 15.8 g/dL (14.0-18.0); Mean Corpuscular Hemoglobin 33.1 pg (27.0-31.0); Mean Corpuscular Volume 94.6 fL (78.0-98.0); Platelet Count 129 thou/uL (130-400); RBC Distribution Width 12.5 % (11.5-14.5); Red Blood Cell (RBC) Count 4.77 mill/uL (4.70-6.10); White Blood Cell (WBC) Count 5.4 thou/uL (4.8-10.8)
[2021-11-07 15:28] LABS: ALT (SGPT) 128 U/L (8-55); AST (SGOT) 159 U/L (5-34); Albumin 4.7 g/dL (3.4-4.8); Alkaline Phosphatase 93 U/L (40-110); Anion Gap 22 mmol/L (10-20); BUN (Urea Nitrogen) 17 mg/dL (8.4-25.7); Bilirubin, Total 1.4 mg/dL (0.2-1.2); Calc. Creatinine Clearance 0 mL/min (70-130); Calcium 9.1 mg/dL (7.8-10.44); Carbon Dioxide 24 mmol/L (23-31); Chloride 90 mmol/L (98-107); Globulin 2.6 g/dL (2.4-3.5); Glucose 88 mg/dL (83-110); Lipase 84 U/L (8-78); Potassium 4.2 mmol/L (3.5-5.1); Protein, Total 7.3 g/dL (5.8-8.1); Sodium 132 mmol/L (136-145)
[2021-11-07] MEDS ORDERED: Ondansetron PF 4 MG/2 ML Vial ONE (17:11)
[2021-11-07 17:36] LABS: Acetaminophen Less than 10.0 mcg/mL (10.0-30.0); Alcohol 316 mg/dL (Less than 10); Salicylate Less than 8.0 mg/dL (15.0-30.0)
[2021-11-07 18:28] LABS: Lactic Acid 2.5 mmol/L (0.5-2.2)
[2021-11-07] MEDS ORDERED: Mag-Al 1200 mg/1200 mg/30 ML UDCUP ONE (19:14)
[2021-11-07 19:37] LABS: Bacteria/HPF None Seen HPF (None Seen); Bilirubin Negative (Negative); Blood, Urine Trace (Negative); Clarity Clear (Clear); Glucose, Urine (Dipstick) Normal (Negative); Ketone, Urine 20 mg/dL (Negative); Leukocyte Negative Leu/uL (Negative); Nitrite Negative (Negative); Protein, Urine (Dipstick) 70 mg/dL (Neg-Trace); RBC/HPF 0-3 HPF (0-3); Specific Gravity, Urine 1.012 (1.002-1.036); Squamous Epithelial None Seen HPF (0-3); Urobilinogen 3 mg/dL (Less than 2); WBC/HPF 0-3 HPF (0-3)
[2021-11-07] MEDS ORDERED: Ondansetron PF 4 MG/2 ML Vial IVP PRN (21:23)
[2021-11-07] MEDS ORDERED: Ondansetron ODT 4 MG TAB PO PRN (21:25)
[2021-11-07] MEDS ORDERED: Lorazepam 2 MG/ML VIAL IM PRN (21:25)
[2021-11-07] MEDS ORDERED: Electrolyte Replacement Protocol 1 EACH FS SCH (21:30)
[2021-11-07] MEDS ORDERED: Calcium Carbonate 500 MG ChewTAB PO PRN (21:33)
[2021-11-07] MEDS ORDERED: Acetaminophen 500 MG TAB PO PRN (21:34)
[2021-11-07] MEDS ORDERED: Folic Acid 1 MG TAB PO SCH (21:45)
[2021-11-07] MEDS ORDERED: Multivit, Therapeutic 1 TAB PO SCH (21:45)
[2021-11-07] MEDS ORDERED: Piperacillin/Tazobactam 3.375 GM VIAL ONE (21:51)
[2021-11-07] MEDS ORDERED: Lorazepam 2 MG/ML VIAL ONE (21:52)
[2021-11-07 22:15] LABS: Lactic Acid 2.9 mmol/L (0.5-2.2)
[2021-11-07 22:19] LABS: Magnesium 1.9 mg/dL (1.6-2.6)
[2021-11-07 22:38] LABS: INR-International Normal Ratio 0.9; PTT 25.7 sec (22.9-36.1)
[2021-11-07] MEDS ORDERED: Folic Acid 1 MG TAB ONE (23:10)
[2021-11-07] MEDS: Thiamine HCl 200 MG/2 ML VIAL SLOW IVP SCH (23:20)
[2021-11-08] MEDS ORDERED: Lorazepam 1 MG TAB ONE ×3 (03:02→13:30)
[2021-11-08] MEDS: Lorazepam 1 MG TAB PO PRN ×3 (03:43→13:34)
[2021-11-08 04:15] LABS: ALT (SGPT) 105 U/L (8-55); AST (SGOT) 129 U/L (5-34); Alkaline Phosphatase 85 U/L (40-110); Anion Gap 16 mmol/L (10-20); BUN (Urea Nitrogen) 16 mg/dL (8.4-25.7); Bilirubin, Total 1.4 mg/dL (0.2-1.2); Calc. Creatinine Clearance 0 mL/min (70-130); Calcium 8.5 mg/dL (7.8-10.44); Carbon Dioxide 25 mmol/L (23-31); Chloride 97 mmol/L (98-107); Globulin 2.1 g/dL (2.4-3.5); Glucose 94 mg/dL (83-110); Magnesium 1.9 mg/dL (1.6-2.6); Potassium 4.2 mmol/L (3.5-5.1); Protein, Total 6.1 g/dL (5.8-8.1); Sodium 134 mmol/L (136-145)
[2021-11-08 04:19] LABS: #Lymphocytes 0.4 thou/uL (1.20-3.40); #Monocytes 0.7 thou/uL (0.11-0.59); #Neutrophils 5.9 thou/uL (1.40-6.50); %Basophils 0.4 % (0.0-1.0); %Eosinophils 0.5 % (0.0-10.0); %Neutrophils 83.1 % (42.0-75.0); Hemoglobin 13.7 g/dL (14.0-18.0); Mean Corpuscular HGB CONC 34.2 g/dL (32.0-36.0); Mean Corpuscular Hemoglobin 32.9 pg (27.0-31.0); Mean Corpuscular Volume 96.2 fL (78.0-98.0); Mean Platelet Volume 6.9 fL (7.4-10.4); Platelet Count 103 thou/uL (130-400); Platelet Morphology Comment Appears Decreased; RBC Distribution Width 12.6 % (11.5-14.5); RBC Morphology Normal; Red Blood Cell (RBC) Count 4.16 mill/uL (4.70-6.10); White Blood Cell (WBC) Count 7.1 thou/uL (4.8-10.8)
[2021-11-08] MEDS: Sodium Chloride 0.9% 1,000 ML IV SCH ×2 (07:05→23:59)
[2021-11-08 07:58] VITALS: BMI 25.8
[2021-11-08] MEDS ORDERED: Magnesium 2 GM/50 ML(in water) 2 GM in Premix Bag 1 BAG IVPB SCH (08:00)
[2021-11-08] MEDS ORDERED: Folic Acid 1 MG TAB ONE (08:51)
[2021-11-08] MEDS ORDERED: Enoxaparin Sodium 30 MG/0.3 ML SYRINGE ONE (08:51)
[2021-11-08] MEDS ORDERED: Enoxaparin Sodium 30 MG/0.3 ML SYRINGE SC SCH (09:00)
[2021-11-08] MEDS: Multivit, Therapeutic 1 TAB PO SCH (09:05)
[2021-11-08] MEDS: Folic Acid 1 MG TAB PO SCH (09:05)
[2021-11-08] MEDS: chlordiazePOXIDE HCl 25 MG CAP PO SCH ×3 (10:05→21:33)
[2021-11-08] MEDS ORDERED: Lorazepam 1 MG TAB PO PRN (21:25)
[2021-11-08] MEDS: Thiamine HCl 200 MG/2 ML VIAL SLOW IVP SCH (21:34)
[2021-11-09 04:50] LABS: ALT (SGPT) 76 U/L (8-55); AST (SGOT) 75 U/L (5-34); Albumin 3.5 g/dL (3.4-4.8); Alkaline Phosphatase 74 U/L (40-110); Anion Gap 12 mmol/L (10-20); BUN (Urea Nitrogen) 18 mg/dL (8.4-25.7); Bilirubin, Total 0.9 mg/dL (0.2-1.2); Calc. Creatinine Clearance 81 mL/min (70-130); Calcium 8.5 mg/dL (7.8-10.44); Carbon Dioxide 27 mmol/L (23-31); Chloride 98 mmol/L (98-107); Globulin 1.9 g/dL (2.4-3.5); Glucose 141 mg/dL (83-110); Potassium 3.3 mmol/L (3.5-5.1); Protein, Total 5.4 g/dL (5.8-8.1); Sodium 134 mmol/L (136-145)
[2021-11-09 04:52] LABS: #Eosinphils 0.1 thou/uL (0.0-0.7); #Lymphocytes 0.5 thou/uL (1.20-3.40); #Monocytes 0.3 thou/uL (0.11-0.59); #Neutrophils 2.8 thou/uL (1.40-6.50); %Basophils 0.7 % (0.0-1.0); %Eosinophils 3.1 % (0.0-10.0); %Lymphocytes 13.5 % (21.0-51.0); %Monocytes 8.6 % (0.0-10.0); Hemoglobin 12.5 g/dL (14.0-18.0); Mean Corpuscular HGB CONC 33.4 g/dL (32.0-36.0); Mean Corpuscular Hemoglobin 32.6 pg (27.0-31.0); Mean Corpuscular Volume 97.7 fL (78.0-98.0); Mean Platelet Volume 7.2 fL (7.4-10.4); Platelet Count 84 thou/uL (130-400); RBC Distribution Width 12.5 % (11.5-14.5); Red Blood Cell (RBC) Count 3.83 mill/uL (4.70-6.10); White Blood Cell (WBC) Count 3.8 thou/uL (4.8-10.8)
[2021-11-09] MEDS ORDERED: Potassium Chloride 20 MEQ TAB PO SCH (05:00)
[2021-11-09] MEDS ORDERED: Magnesium 2 GM/50 ML(in water) 2 GM in Premix Bag 1 BAG IVPB SCH (05:30)
[2021-11-09] MEDS ORDERED: Loperamide HCl 2 MG CAP PO PRN (07:34)
[2021-11-09] MEDS ORDERED: hydrALAZINE 20 MG/ML VIAL SLOW IVP PRN (07:34)
[2021-11-09] MEDS ORDERED: GUAIFENESIN SF SOLN 200 MG/10 ML UDCUP PO PRN (07:34)
[2021-11-09] MEDS ORDERED: Moisturizing Cream (Eucerin) 113 GM JAR TOP PRN (07:34)
[2021-11-09] MEDS ORDERED: Loratadine 10 MG TAB PO PRN (07:34)
[2021-11-09] MEDS ORDERED: Senokot S 8.6-50 MG TAB PO PRN (07:34)
[2021-11-09] MEDS ORDERED: Cepastat Lozenges 1 LOZ PO PRN (07:34)
[2021-11-09] MEDS ORDERED: Zolpidem Tartrate 5 MG TAB PO PRN (07:34)
[2021-11-09] MEDS ORDERED: Artificial Tear Sol 15 ML BOT EA EYE PRN (07:34)
[2021-11-09] MEDS: Multivit, Therapeutic 1 TAB PO SCH (08:51)
[2021-11-09] MEDS: Folic Acid 1 MG TAB PO SCH (08:51)
[2021-11-09] MEDS: Pantoprazole 40 MG VIAL IVP SCH (08:51)
[2021-11-09] MEDS: chlordiazePOXIDE HCl 25 MG CAP PO SCH ×3 (08:51→21:26)
[2021-11-09] MEDS ORDERED: Multivit, Therapeutic 1 TAB PO SCH (09:00)
[2021-11-09] MEDS ORDERED: Lorazepam 1 MG TAB PO PRN (21:25)
[2021-11-09] MEDS: Thiamine HCl 200 MG/2 ML VIAL SLOW IVP SCH (21:26)
[2021-11-10 04:50] LABS: #Eosinphils 0.1 thou/uL (0.0-0.7); #Lymphocytes 0.5 thou/uL (1.20-3.40); #Monocytes 0.4 thou/uL (0.11-0.59); %Basophils 0.3 % (0.0-1.0); %Eosinophils 2.5 % (0.0-10.0); %Lymphocytes 12.9 % (21.0-51.0); %Monocytes 9.9 % (0.0-10.0); %Neutrophils 74.4 % (42.0-75.0); Hemoglobin 12.8 g/dL (14.0-18.0); Mean Corpuscular HGB CONC 33.3 g/dL (32.0-36.0); Mean Corpuscular Hemoglobin 33.5 pg (27.0-31.0); Mean Platelet Volume 7.9 fL (7.4-10.4); Platelet Count 83 thou/uL (130-400); RBC Distribution Width 12.4 % (11.5-14.5); Red Blood Cell (RBC) Count 3.82 mill/uL (4.70-6.10); White Blood Cell (WBC) Count 4.1 thou/uL (4.8-10.8)
[2021-11-10 05:09] LABS: Phosphorus 2.5 mg/dL (2.3-4.7)
[2021-11-10 05:10] LABS: Anion Gap 10 mmol/L (10-20); BUN (Urea Nitrogen) 16 mg/dL (8.4-25.7); Calc. Creatinine Clearance 84 mL/min (70-130); Carbon Dioxide 29 mmol/L (23-31); Chloride 98 mmol/L (98-107); Potassium 3.5 mmol/L (3.5-5.1); Sodium 133 mmol/L (136-145)
[2021-11-10 05:11] LABS: ALT (SGPT) 74 U/L (8-55); AST (SGOT) 66 U/L (5-34); Albumin 3.5 g/dL (3.4-4.8); Alkaline Phosphatase 126 U/L (40-110); Bilirubin, Total 0.6 mg/dL (0.2-1.2); Calcium 8.7 mg/dL (7.8-10.44); Glucose 169 mg/dL (83-110); Magnesium 1.8 mg/dL (1.6-2.6); Protein, Total 5.5 g/dL (5.8-8.1)
[2021-11-10] MEDS ORDERED: Magnesium 2 GM/50 ML(in water) 2 GM in Premix Bag 1 BAG IVPB SCH (06:00)
[2021-11-10] MEDS ORDERED: Potassium Chloride 20 MEQ TAB PO SCH (08:00)
[2021-11-10] MEDS: Multivit, Therapeutic 1 TAB PO SCH (09:20)
[2021-11-10] MEDS: Folic Acid 1 MG TAB PO SCH (09:20)
[2021-11-10] MEDS: Pantoprazole 40 MG VIAL IVP SCH (09:20)
[2021-11-10] MEDS: chlordiazePOXIDE HCl 25 MG CAP PO SCH (09:20)
[2021-11-10 10:16] VITALS: BP 129/78; TEMP 97.5
[2021-11-10] MEDS ORDERED: Thiamine 100 MG TAB PO SCH (21:00)
[2021-11-10] MEDS ORDERED: Lorazepam 0.5 MG TAB PO PRN (21:25)
== END 2021-11-10 12:39 | disposition home or self-care (01) | DRG 897 ==
LOC: ERS 13:56 → ERHOLD 20:19 → 2NO 21:25 → OBSVTOIN 11-08 11:14 → 2NO 11-08 13:51
PROVIDERS: ADMIT Internal Medicine; ATTEND Nurse Practitioner Acute Care
PROC: HZ2ZZZZ Detoxification Services for Substance Abuse Treatment (ICD-10-PCS; principal; 2021-11-08)
DX: F10.139 Alcohol abuse with withdrawal, unspecified (principal); E87.2 Acidosis; I31.3 Pericardial effusion (noninflammatory); I50.32 Chronic diastolic (congestive) heart failure; D61.818 Other pancytopenia; K76.6 Portal hypertension; E87.1 Hypo-osmolality and hyponatremia; K83.8 Other specified diseases of biliary tract; D69.59 Other secondary thrombocytopenia; K21.9 Gastro-esophageal reflux disease without esophagitis; E78.5 Hyperlipidemia, unspecified; R74.8 Abnormal levels of other serum enzymes; K76.0 Fatty (change of) liver, not elsewhere classified; E78.00 Pure hypercholesterolemia, unspecified; F17.210 Nicotine dependence, cigarettes, uncomplicated; F10.129 Alcohol abuse with intoxication, unspecified; Y90.8 Blood alcohol level of 240 mg/100 ml or more; Z71.41 Alcohol abuse counseling and surveillance of alcoholic; Z85.118 Personal history of other malignant neoplasm of bronchus and lung; Z92.3 Personal history of irradiation; Z92.21 Personal history of antineoplastic chemotherapy; Z98.890 Other specified postprocedural states
CPT/HCPCS: 36415; 71045; 74177; 76705; 80053; 80307; 81003; 81015; 83605; 83690; 83735; 84100; 84443; 85025; 85610; 85730; 87040; 93005; 93306; 94640; C9113; J1650; J2060; J2405; J2543; J3411; J3475; J7050; J7620; Q9967; U0003; U0005

== ENCOUNTER 2021-11-27 08:36 | Outpatient (CLI) | payer MEDICARE ==
[~2021-11-27 08:36] MED LIST changes: +Iopamidol 370 76% 100 ML VIAL ONE; -Magnevist 469MG/ML 20 ML VIAL ONE
== END 2021-11-27 08:37 | disposition home or self-care (01) ==
LOC: CT 08:36
PROVIDERS: ATTEND Internal Medicine Hematology & Oncology
DX: C34.12 Malignant neoplasm of upper lobe, left bronchus or lung (principal); J98.4 Other disorders of lung; K22.89 Other specified disease of esophagus; I31.3 Pericardial effusion (noninflammatory)
CPT/HCPCS: 71260; 74177; Q9967

== ENCOUNTER 2021-12-04 15:07 | Outpatient (CLI) | payer MEDICARE | END 2021-12-04 15:08 | disposition home or self-care (01) | LOC: SCSMRI 15:07 | PROVIDERS: ATTEND Radiology Radiation Oncology | DX: C34.90 Malignant neoplasm of unspecified part of unspecified bronchus or lung (principal) | CPT/HCPCS: 70553 ==

== ENCOUNTER 2022-05-27 07:54 | Outpatient (CLI) | payer MEDICARE ==
[2022-05-27] MEDS ORDERED: Iopamidol-370 76% 500 ML 1 ML ONE (15:27)
== END 2022-05-27 07:55 | disposition home or self-care (01) ==
LOC: BICCT 07:54
PROVIDERS: ATTEND Internal Medicine Hematology & Oncology
DX: C34.12 Malignant neoplasm of upper lobe, left bronchus or lung (principal)
CPT/HCPCS: 71260; 74177; 82565; Q9967

== ENCOUNTER 2022-11-25 08:28 | Outpatient (CLI) | payer MEDICARE, OTHER ==
[2022-11-25] MEDS ORDERED: Iopamidol-370 76% 500 ML MDV (1 ML CHARGE) ONE (17:10)
== END 2022-11-25 08:29 | disposition home or self-care (01) ==
LOC: BICCT 08:28
PROVIDERS: ATTEND Internal Medicine Hematology & Oncology
DX: C34.12 Malignant neoplasm of upper lobe, left bronchus or lung (principal); I31.39 Other pericardial effusion (noninflammatory); Z98.890 Other specified postprocedural states
CPT/HCPCS: 71260; 74177; Q9967

== ENCOUNTER 2024-06-30 12:48 | Outpatient (CLI) | payer MEDICARE | END 2024-06-30 12:49 | disposition home or self-care (01) | LOC: CT 12:48 | PROVIDERS: ATTEND Internal Medicine Hematology & Oncology | DX: C34.12 Malignant neoplasm of upper lobe, left bronchus or lung (principal); I31.39 Other pericardial effusion (noninflammatory); K44.9 Diaphragmatic hernia without obstruction or gangrene; J39.8 Other specified diseases of upper respiratory tract | CPT/HCPCS: 71250 ==